=== PATIENT | female | born 1940 | race Caucasian/White ===

== ENCOUNTER 2022-09-08 05:58 | Inpatient (IN) | payer OTHER ==
[2022-08-30 13:41] VITALS: BMI 26.5
[2022-09-08] MEDS ORDERED: PROPOFOL 100 ML ONE (07:18)
[2022-09-08] MEDS ORDERED: MIDAZOLAM HCL 2 MG/2 ML SINGLE DOSE VIAL ONE ×2 (07:18→09:57)
[2022-09-08] MEDS ORDERED: ROPIVACAINE HCL 0.5% 30ML VIAL ONE (07:30)
[2022-09-08] MEDS ORDERED: BUPIVACAINE HCL/PF 0.5% (5MG/ML) 10 ML VIAL ONE (08:04)
[2022-09-08] MEDS ORDERED: TRANEXAMIC ACID 1000 MG/10 ML VIAL ONE (09:12)
[2022-09-08] MEDS ORDERED: VANCOMYCIN 1,000 MG VIAL (RESTRICTED TO ID ONLY) ONE (09:12)
[2022-09-08] MEDS ORDERED: ceFAZolin SODIUM 1 GM VIAL ONE ×2 (09:12→10:58)
[2022-09-08] MEDS ORDERED: DEXAMETHASONE SOD PHOSPHATE 4 MG/1 ML VIAL ONE (09:12)
[2022-09-08] MEDS ORDERED: PROPOFOL 20 ML ONE (11:03)
[2022-09-08] MEDS ORDERED: ONDANSETRON 4 MG/2 ML VIAL IVPUSH PRN ×2 (12:42)
[2022-09-08] MEDS ORDERED: MAG HYDROX/AL HYDROX/SIMETH 30 ML UNIT-DOSE CUP PO PRN (12:42)
[2022-09-08] MEDS ORDERED: MAGNESIUM HYDROX 2400MG/30ML ORAL SUSPENSION 30 ML CUP PO PRN (12:42)
[2022-09-08] MEDS ORDERED: PROMETHAZINE HCL 25 MG/1 ML VIAL IVPUSH PRN (12:42)
[2022-09-08] MEDS ORDERED: KETOROLAC TROMETHAMINE 15 MG/ML VIAL IVPUSH ONE (12:44)
[2022-09-08] MEDS ORDERED: LACTATED RINGERS SOLUTION 1,000 ML IV SCH ×2 (12:45)
[2022-09-08] MEDS: ACETAMINOPHEN 1000 MG/100 ML BAG IVPB SCH ×2 (13:05→19:47)
[2022-09-08] MEDS ORDERED: KETOROLAC TROMETHAMINE 30 MG/1 ML VIAL ONE (13:21)
[2022-09-08] MEDS ORDERED: ACETAMINOPHEN INJECTION 100 ML IVPB ONE (13:22)
[2022-09-08] MEDS ORDERED: oxyCODONE HCL 5 MG TABLET PO ONE (14:30)
[2022-09-08] MEDS ORDERED: oxyCODONE HCL 5 MG TABLET ONE (14:38)
[2022-09-08] MEDS: CEFAZOLIN SODIUM 2 GM in DEXTROSE 5%-WATER 100 ML IVPB SCH ×2 (16:58→22:45)
[2022-09-08] MEDS: SENNOSIDES/DOCUSATE COMBO (SENNA PLUS) TABLET (UD) PO SCH (21:09)
[2022-09-08] MEDS: ASPIRIN 81 MG CHEWABLE TABLETS PO SCH (21:10)
[2022-09-08] MEDS: oxyCODONE HCL 5 MG TABLET PO PRN (21:17)
[2022-09-09] MEDS: ACETAMINOPHEN 1000 MG/100 ML BAG IVPB SCH ×4 (01:17→20:56)
[2022-09-09] MEDS: CEFAZOLIN SODIUM 2 GM in DEXTROSE 5%-WATER 100 ML IVPB SCH (05:17)
[2022-09-09] MEDS: oxyCODONE HCL 5 MG TABLET PO PRN ×2 (06:17→14:09)
[2022-09-09] MEDS: SENNOSIDES/DOCUSATE COMBO (SENNA PLUS) TABLET (UD) PO SCH ×2 (09:30→21:16)
[2022-09-09] MEDS: SERTRALINE HCL 50 MG TABLET (FP) PO SCH (09:30)
[2022-09-09] MEDS: ASPIRIN 81 MG CHEWABLE TABLETS PO SCH ×2 (09:30→21:16)
[2022-09-09] MEDS: PANTOPRAZOLE 40 MG TABLET PO SCH (09:30)
[2022-09-09] MEDS: ATENOLOL 50 MG TABLET (FP) PO SCH (09:31)
[2022-09-09] MEDS: amLODIPine BESYLATE 5 MG TABLET (FP) PO SCH (09:31)
[2022-09-09 10:52] LABS: HEMATOCRIT 26.9 % (32.4-45.2); HEMOGLOBIN 9.1 G/dL (10.7-15.3); MCH 31.7 pg (25.7-33.7); MCHC 33.8 g/dl (32.0-36.0); MEAN CELL VOLUME 93.6 fl (80-96); MEAN PLT VOLUME 9.1 fl (7.5-11.1); PLATELET COUNT 196.6 10^3/uL (134-434); RBC 2.87 10^6/uL (3.60-5.2); RDW 14.2 % (11.6-15.6); WHITE BLOOD COUNT 8.3 10^3/uL (4.0-10.8)
[2022-09-09 11:22] LABS: CALCIUM 8.4 mg/dl (8.5-10); CREATININE 0.5 mg/dl (0.55-1.3)
[2022-09-09 12:19] LABS: ALBUMIN 2.9 g/dl (3.4-5.0); BILIRUBIN,TOTAL 0.8 mg/dl (0.2-1); CALCIUM 8.5 mg/dl (8.5-10); CREATININE 0.4 mg/dl (0.55-1.3)
[2022-09-09] MEDS: CHOLECALCIFEROL (VIT D3) 400 UNIT (10 MCG) TABLET PO SCH (14:13)
[2022-09-09] MEDS: ATORVASTATIN CA 10 MG TABLET (FP) PO SCH (21:16)
[2022-09-10] MEDS: oxyCODONE HCL 5 MG TABLET PO PRN ×3 (01:48→13:39)
[2022-09-10] MEDS: ACETAMINOPHEN 1000 MG/100 ML BAG IVPB SCH ×3 (01:49→15:39)
[2022-09-10 09:04] LABS: ALBUMIN 2.7 g/dl (3.4-5.0); BILIRUBIN,TOTAL 0.9 mg/dl (0.2-1); CALCIUM 8.3 mg/dl (8.5-10); CREATININE 0.5 mg/dl (0.55-1.3); TOT PROT 4.8 g/dl (6.4-8.2)
[2022-09-10 09:29] LABS: HEMATOCRIT 25.4 % (32.4-45.2); HEMOGLOBIN 8.5 G/dL (10.7-15.3); MCH 31.8 pg (25.7-33.7); MCHC 33.6 g/dl (32.0-36.0); MEAN CELL VOLUME 94.8 fl (80-96); MEAN PLT VOLUME 9.1 fl (7.5-11.1); PLATELET COUNT 182.8 10^3/uL (134-434); RBC 2.68 10^6/uL (3.60-5.2); RDW 14.2 % (11.6-15.6); WHITE BLOOD COUNT 11.1 10^3/uL (4.0-10.8)
[2022-09-10] MEDS: SERTRALINE HCL 50 MG TABLET (FP) PO SCH (11:02)
[2022-09-10] MEDS: PANTOPRAZOLE 40 MG TABLET PO SCH (11:03)
[2022-09-10] MEDS: SENNOSIDES/DOCUSATE COMBO (SENNA PLUS) TABLET (UD) PO SCH ×2 (11:03→21:37)
[2022-09-10] MEDS: ASPIRIN 81 MG CHEWABLE TABLETS PO SCH ×2 (11:03→21:37)
[2022-09-10] MEDS: CHOLECALCIFEROL (VIT D3) 400 UNIT (10 MCG) TABLET PO SCH (11:05)
[2022-09-10] MEDS: amLODIPine BESYLATE 5 MG TABLET (FP) PO SCH (15:20)
[2022-09-10] MEDS: ATENOLOL 50 MG TABLET (FP) PO SCH (15:20)
[2022-09-10] MEDS: ATORVASTATIN CA 10 MG TABLET (FP) PO SCH (21:37)
[2022-09-11 09:37] LABS: ALBUMIN 2.3 g/dl (3.4-5.0); CALCIUM 7.7 mg/dl (8.5-10); CREATININE 0.4 mg/dl (0.55-1.3); TOT PROT 4.7 g/dl (6.4-8.2)
[2022-09-11] MEDS: SENNOSIDES/DOCUSATE COMBO (SENNA PLUS) TABLET (UD) PO SCH ×2 (10:04→21:20)
[2022-09-11] MEDS: ASPIRIN 81 MG CHEWABLE TABLETS PO SCH ×2 (10:04→21:20)
[2022-09-11] MEDS: SERTRALINE HCL 50 MG TABLET (FP) PO SCH (10:04)
[2022-09-11] MEDS: ACETAMINOPHEN 500 MG TABLET (FP) PO PRN ×2 (10:04→18:13)
[2022-09-11] MEDS: PANTOPRAZOLE 40 MG TABLET PO SCH (10:05)
[2022-09-11] MEDS: oxyCODONE HCL 5 MG TABLET PO PRN ×2 (10:09→18:12)
[2022-09-11 11:17] LABS: BASO % 0.4 % (0-2.0); EOS % 4.8 % (0-4.5); HEMATOCRIT 22.4 % (32.4-45.2); HEMOGLOBIN 7.3 GM/dL (10.7-15.3); LYMPH % 9.4 % (8-40); MCH 30.1 pg (25.7-33.7); MCHC 32.5 g/dl (32.0-36.0); MEAN CELL VOLUME 92.5 fl (80-96); MEAN PLT VOLUME 9.4 fl (7.5-11.1); MONO % 8.6 % (3.8-10.2); NEUT % 76.8 % (42.8-82.8); PLATELET COUNT 171 10^3/uL (134-434); RBC 2.42 M/mm3 (3.60-5.2); RDW 13.6 % (11.6-15.6); WHITE BLOOD COUNT 7.7 K/mm3 (4.0-10.0)
[2022-09-11] MEDS: CHOLECALCIFEROL (VIT D3) 400 UNIT (10 MCG) TABLET PO SCH (18:12)
[2022-09-11] MEDS: ATENOLOL 50 MG TABLET (FP) PO SCH (18:16)
[2022-09-11] MEDS: amLODIPine BESYLATE 5 MG TABLET (FP) PO SCH (18:16)
[2022-09-11] MEDS: ATORVASTATIN CA 10 MG TABLET (FP) PO SCH (21:20)
[2022-09-12 01:47] VITALS: RESP 17
[2022-09-12] MEDS: ACETAMINOPHEN 500 MG TABLET (FP) PO PRN (07:41)
[2022-09-12] MEDS: oxyCODONE HCL 5 MG TABLET PO PRN (07:42)
[2022-09-12] MEDS: ASPIRIN 81 MG CHEWABLE TABLETS PO SCH (10:45)
[2022-09-12] MEDS: PANTOPRAZOLE 40 MG TABLET PO SCH (10:45)
[2022-09-12] MEDS: CHOLECALCIFEROL (VIT D3) 400 UNIT (10 MCG) TABLET PO SCH (10:45)
[2022-09-12] MEDS: SENNOSIDES/DOCUSATE COMBO (SENNA PLUS) TABLET (UD) PO SCH (10:45)
[2022-09-12] MEDS: SERTRALINE HCL 50 MG TABLET (FP) PO SCH (10:45)
[2022-09-12] MEDS: amLODIPine BESYLATE 5 MG TABLET (FP) PO SCH (10:46)
[2022-09-12] MEDS: ATENOLOL 50 MG TABLET (FP) PO SCH (10:46)
[2022-09-12 10:56] VITALS: BP 120/44; PULSE 73; TEMP 97.9
[2022-09-12 13:59] LABS: ALBUMIN 2.5 g/dl (3.4-5.0); BILIRUBIN,TOTAL 0.8 mg/dl (0.2-1); CALCIUM 7.8 mg/dl (8.5-10); CREATININE 0.4 mg/dl (0.55-1.3); TOT PROT 4.9 g/dl (6.4-8.2)
[2022-09-12 14:22] LABS: BASO % 0.4 % (0-2.0); EOS % 4.5 % (0-4.5); HEMATOCRIT 23.9 % (32.4-45.2); HEMOGLOBIN 7.9 GM/dL (10.7-15.3); LYMPH % 13.4 % (8-40); MCH 30.3 pg (25.7-33.7); MCHC 32.9 g/dl (32.0-36.0); MEAN CELL VOLUME 92.3 fl (80-96); MEAN PLT VOLUME 8.5 fl (7.5-11.1); MONO % 9.5 % (3.8-10.2); NEUT % 72.2 % (42.8-82.8); PLATELET COUNT 232 10^3/uL (134-434); RBC 2.59 M/mm3 (3.60-5.2); RDW 13.6 % (11.6-15.6); WHITE BLOOD COUNT 7.9 K/mm3 (4.0-10.0)
== END 2022-09-12 13:27 | disposition home or self-care (01) | DRG 470 ==
LOC: FM/S 05:58
PROVIDERS: ADMIT Orthopaedic Surgery Orthopaedic Surgery of the Spine; ATTEND Orthopaedic Surgery Orthopaedic Surgery of the Spine
PROC: 0SR90J9 Replacement of Right Hip Joint with Synthetic Substitute, Cemented, Open Approach (ICD-10-PCS; principal; 2022-09-08 09:45)
DX: M16.11 Unilateral primary osteoarthritis, right hip (principal); I10 Essential (primary) hypertension; E78.5 Hyperlipidemia, unspecified; K21.9 Gastro-esophageal reflux disease without esophagitis; F32.A Depression, unspecified; D64.9 Anemia, unspecified
CPT/HCPCS: 36415; 73502-TC-RT-FY; 80048; 80053; 85025; 85027; 88305-TC; 88311-TC; 94760; 97116-GP; 97162-GP; C1776; C9803-CS; U0003; U0005